=== PATIENT | male | born 1930 | race Caucasian/White ===

== ENCOUNTER 2020-03-11 06:10 | Observation (INO) ==
[~2020-03-11 06:10] MED LIST: *HR* OxyCODONE ER (12 HR) 10 MG TABLET PO ONE; 0.9 % Sodium Chloride 1,000 ML IVC ONE; Acetaminophen IV 1,000 MG/100 ML BAG IVPB ONE; Famotidine 20 MG/2 ML VIAL IVP ONE; Pregabalin 50 MG CAPSULE PO ONE
[2020-03-11] MEDS ORDERED: CeFAZolin Syr 2,000MG/20 ML 2,000 MG/20 ML SYRINGE IVPB ONE (06:39)
[2020-03-11] MEDS ORDERED: Ringers Solution, Lactated 1,000 ML IVC SCH ×2 (06:45→07:30)
[2020-03-11] MEDS ORDERED: Lidocaine -MPF 2% 2 ML VIAL ONE ×2 (07:14→07:19)
[2020-03-11] MEDS ORDERED: Ondansetron 4 MG/2 ML VIAL ONE (07:14)
[2020-03-11] MEDS ORDERED: Dexamethasone 4 MG/ML VIAL ONE ×2 (07:14→08:08)
[2020-03-11] MEDS ORDERED: *HR* PHENYLEPHRINE 1,000 MCG/10 ML SYRINGE IVP ONE (07:15)
[2020-03-11] MEDS ORDERED: *HR* Propofol 200 MG/20 ML VIAL IVP ONE (07:15)
[2020-03-11] MEDS ORDERED: Lidocaine -MPF 4% 5 ML AMPUL ONE (07:15)
[2020-03-11] MEDS ORDERED: *HR* Rocuronium Bromide 50 MG/5 ML VIAL ONE (07:15)
[2020-03-11] MEDS ORDERED: *HR* FentaNYL (PF) 100 MCG/2 ML VIAL ONE (07:15)
[2020-03-11] MEDS ORDERED: *HR* Succinylcholine 200 MG/10 ML VIAL IVP ONE (07:15)
[2020-03-11] MEDS ORDERED: EPHEDrine 50 MG/ML VIAL ONE (07:19)
[2020-03-11] MEDS ORDERED: Tranexamic Acid 1,000 MG/10 ML VIAL ONE ×2 (07:22→10:24)
[2020-03-11] MEDS ORDERED: Vancomycin 1,000 MG VIAL ONE (07:23)
[2020-03-11] MEDS ORDERED: *HR* Promethazine 25 MG/ML VIAL IM PRN (07:30)
[2020-03-11] MEDS ORDERED: Naloxone 0.4 MG/ML INJ IVP PRN ×2 (07:30→07:42)
[2020-03-11] MEDS ORDERED: Sennosides 8.6 MG TABLET PO PRN (07:30)
[2020-03-11] MEDS ORDERED: Ondansetron 4 MG/2 ML VIAL IVP PRN ×2 (07:30→07:42)
[2020-03-11] MEDS ORDERED: MOM Conc 10 ML UD.LIQ PO PRN (07:30)
[2020-03-11] MEDS ORDERED: ROPIVACAINE/PF/NS 0.25% 1 EACH SYRINGE INTRAART ONE (07:31)
[2020-03-11] MEDS ORDERED: Ropivacaine/PF 0.5% 30 ML VIAL ONE (07:31)
[2020-03-11] MEDS ORDERED: *HR* HYDROmorphone PF 0.5 MG/0.5 ML SYRINGE IVP PRN (07:42)
[2020-03-11] MEDS ORDERED: Povidone-Iodine 45 ML, Sodium Chloride IRRigation 1,000 ML IR ONE (07:45)
[2020-03-11] MEDS ORDERED: TOTAL JOINT MIXTURE (100ML) INTRAART ONE (07:45)
[2020-03-11] MEDS: *HR* FentaNYL (PF) 100 MCG/2 ML VIAL IVP PRN ×2 (10:41→10:56)
[2020-03-11] MEDS: Multivit/Ca/Min/Fe/FA 1 TAB TABLET PO SCH (11:51)
[2020-03-11] MEDS: Ascorbic Acid 500 MG TABLET PO SCH ×2 (11:51→16:34)
[2020-03-11] MEDS: *HR* OxyCODONE Immed Rel 5 MG TABLET PO PRN ×2 (11:59→21:09)
[2020-03-11] MEDS ORDERED: Ketorolac 15 MG/ML VIAL IVP SCH (12:00)
[2020-03-11] MEDS: CeFAZolin 2 GM/120 ML BAG IVPB SCH ×2 (16:34→23:37)
[2020-03-11] MEDS ORDERED: *HR* Dextrose 50 % in Water (Vial) 50 ML VIAL IVP PRN (18:36)
[2020-03-11] MEDS ORDERED: D5% in Water 1,000 ML IVC PRN (18:36)
[2020-03-11] MEDS ORDERED: Dextrose Gel 15 GM/37.5 ML TUBE PO PRN ×2 (18:36)
[2020-03-11] MEDS ORDERED: Insulin LISPRO 300 UNITS/3 ML VIAL SQ SCH (21:00)
[2020-03-11] MEDS: Gabapentin 100 MG CAPSULE PO SCH (21:00)
[2020-03-11] MEDS ORDERED: rOPINIRole 0.25 MG TABLET PO SCH (21:00)
[2020-03-11] MEDS: (Diclofenac Sodium [Voltaren] 100 GM) TP SCH (21:03)
[2020-03-12] MEDS: *HR* OxyCODONE Immed Rel 5 MG TABLET PO PRN ×3 (02:48→11:36)
[2020-03-12 05:27] LABS: Hematocrit 29.1 % (37.5-50.1); Hemoglobin 9.5 g/dL (12.9-16.9); Immature Granulocytes % 0.5 % (0-4); Lymphocytes # 0.3 K/mcL (0.6-4.6); Lymphocytes % 3.7 %; Mean Corpuscular HGB Conc 32.6 g/dL (31.6-35.5); Mean Corpuscular Hemoglobin 32.2 pg (28.0-33.3); Mean Corpuscular Volume 98.6 fL (83.0-100.0); Mean Platelet Volume 8.6 fL (9.4-12.4); Monocytes # 0.5 K/mcL (0.0-1.3); Monocytes % 6.4 %; Neutrophils # 7.6 K/mcL (1.6-8.9); Platelet Count 139 K/mcL (140-400); Red Blood Count 2.95 M/mcL (4.19-5.50); Red Cell Distribution Width 13.2 % (11.5-14.5); Segmented Neutrophils % 89.4 %; White Blood Count 8.5 K/mcL (4.3-11.1)
[2020-03-12 06:00] LABS: Calcium 8.6 mg/dL (8.6-10.3); Potassium 4.9 mEq/L (3.5-5.1)
[2020-03-12] MEDS: (Diclofenac Sodium [Voltaren] 100 GM) TP SCH ×2 (07:42→11:37)
[2020-03-12] MEDS: Ascorbic Acid 500 MG TABLET PO SCH (07:48)
[2020-03-12] MEDS: Multivit/Ca/Min/Fe/FA 1 TAB TABLET PO SCH (07:48)
[2020-03-12] MEDS: Gabapentin 100 MG CAPSULE PO SCH (07:48)
[2020-03-12] MEDS ORDERED: (Mirabegron [Myrbetriq] 50 MG) PO SCH (09:00)
[2020-03-12] MEDS ORDERED: lisinopriL 20 MG TABLET PO SCH (09:00)
[2020-03-12] MEDS ORDERED: amLODIPine 5 MG TABLET PO SCH (09:00)
[2020-03-12] MEDS ORDERED: Cyanocobalamin (B-12) 1,000 MCG TABLET PO SCH (09:00)
[2020-03-12] MEDS ORDERED: Aspirin 81 MG TAB.CHEW PO SCH (09:00)
[2020-03-12 10:12] VITALS: BP 132/72
[2020-03-12] MEDS ORDERED: Ketorolac 15 MG/ML VIAL IVP SCH (12:00)
[2020-03-12] MEDS ORDERED: Aspirin Enteric Coated 81 MG Tablet PO SCH (16:47)
== END 2020-03-12 14:55 | disposition home health service (06) ==
LOC: 3NENU 06:10 → SAMDAY 06:10 → 3NENU 11:46
PROVIDERS: ADMIT Orthopaedic Surgery; ATTEND Orthopaedic Surgery